=== PATIENT | female | born 1975 | race Caucasian/White ===

== ENCOUNTER → 2016-07-31 | Outpatient (CLI) | payer MEDICAID ==
--- NOTE | 2016-07-31 15:07 | US ---
July 31, [address] Franklin, Thank you for allowing me to see your patient, Mrs. Goodwin for aneuploidy screening and co nsult. As you know she is a 41 year old G 2, P 1001 . Her due date is 02/07/17 by LMP of 05/03/16. Based on this dating her current gestational age is 12 weeks 5 day(s) . This is complicat ed by advanced maternal age and a history of postdates SGA. She is pending her NIPT results. Trish reports that her son was born at 42 weeks only weighing 5 lb. He required a week of NICU care. ULTRASOUND LMP: 05/03/17 Gestational age by LMP: 12 weeks 5 days AL by LMP: 02/07/17 CRL: 66 mm Gestational Age by CRL: 12 weeks 5 days AL by CRL: 02/07/17 Consistent with established dating (LMP or ultrasound): Yes Nuchal Translucency: 1.7 mm Nasal Bone: Present Heart Rate: 165 bpm Placenta: Anterior Right Ovary: Is not seen on today's ultrasound. Left Ovary: Is visualized with a corpus luteum. The ovary measures 2.1 x 2.8 x 1.9 cm. The corpus lut eum measures 1.5 x 1.2 x 1.5 cm. No overt structural anomalies were identified for this early ultrasound. The choroids, upper extremit ies and lower extremities were visualized and appear normal for this gestational age. Please note the full anatomic evaluation has not occurred for this early gestational age. Impression: 1. Intrauterine at 12 w, 5 d, AL of 02/07/17. 2. Nuchal translucency measurement today is 1.7 mm, which is reassuring. 3. Advanced maternal age; pending NIPT results Recommendations: 1. Maternal serum AFP is recommended between 15-20 weeks to screen for the risk of open neural tube defects. 2. Recommend a detailed obstetrical ultrasound between 19 and 20 weeks to evaluate anatomy. 3. We reviewed the various aneuploidy screening options and definitive genetic diagnosis today inclu ding the types of information each can reveal. After our conversation, your couple declined invasive testing. 4. Recommend surveillance of growth at 28-30 weeks and 34-36 weeks given the history of SGA found at term. Thank you for allowing us the opportunity to evaluate your patient. Should you have any further ques tions or concerns please do not hesitate to contact me. Approximately 20 minutes were spent with the patient and 12 minutes were spent in face to face consu ltation. Ayleen Sam MD [employer] M[facility] Department of Obstetrics & Gynecology [facility]
--- NOTE | 2016-07-31 15:35 | US ---
Obstetrical Ultrasound 1st Trimester, Nuchal measurement, <14 weeks Clinical Indications: Advanced maternal age. Intrauterine . Findings: A single viable intrauterine fetus is identified. LMP: May 03, 2016 Gestational Age by LMP: 12 weeks 5 days AL by LMP: February 07, 2017 CRL: 65.92 mm Gestational Age by CRL: 13 weeks 0 days AL by CRL: February 05, 2017 FHR = 165 beats per minute. Nuchal translucency is 1.7 mm. Nasal bone is identified. No subchorionic hemorrhage. Anterior placenta. Cervix appears closed. Right ovary not visualized Left ovary 2.8 x 1.9 x 2.1 cm with a 1.5 x 1.2 x 1.5 cm corpus luteum cyst. Impression: 1. Single viable intrauterine gestation with size consistent with LMP dates. 2. FHR = 165 BPM. 3. Recommend followup anatomy scan between 19 and 20 weeks gestation. 4. Please see Dr. Ayleen Sam's consult and recommendations.
== END ==
LOC: FIMAGING 13:54
PROVIDERS: ATTEND Obstetrics & Gynecology
DX: O09.521 Supervision of elderly multigravida, first trimester (principal); Z3A.12 12 weeks gestation of pregnancy

== ENCOUNTER → 2016-09-25 | Outpatient (CLI) | payer MEDICAID | LOC: FIMAGING 12:05 | PROVIDERS: ATTEND Obstetrics & Gynecology | DX: O09.522 Supervision of elderly multigravida, second trimester (principal); Z3A.20 20 weeks gestation of pregnancy ==

== ENCOUNTER → 2016-11-17 | Outpatient (CLI) | payer MEDICAID | LOC: FIMAGING 09:31 | PROVIDERS: ATTEND Obstetrics & Gynecology | DX: O09.523 Supervision of elderly multigravida, third trimester (principal); Z3A.28 28 weeks gestation of pregnancy ==

== ENCOUNTER → 2016-12-15 | Outpatient (CLI) | payer MEDICAID | LOC: FIMAGING 09:37 | PROVIDERS: ATTEND Obstetrics & Gynecology | DX: Z36 Encounter for antenatal screening of mother (principal); O09.523 Supervision of elderly multigravida, third trimester; Z3A.32 32 weeks gestation of pregnancy ==

== ENCOUNTER → 2017-01-19 | Outpatient (CLI) | payer MEDICAID | LOC: FIMAGING 09:31 | PROVIDERS: ATTEND Obstetrics & Gynecology | DX: O09.523 Supervision of elderly multigravida, third trimester (principal); Z3A.37 37 weeks gestation of pregnancy ==

== ENCOUNTER 2017-02-03 17:00 | Inpatient (IN) | payer MEDICAID ==
[2017-02-04] MEDS ORDERED: TERBUTALINE SULFATE 1 MG/ML VIAL IV PRN (06:36)
[2017-02-04] MEDS ORDERED: OLIVE OIL 118 ML BTL MISC PRN (06:36)
[2017-02-04] MEDS ORDERED: LR 1,000 ML IV PRN (06:36)
[2017-02-04] MEDS ORDERED: EPSOM SALT 454 GM TP PRN (06:36)
[2017-02-04] MEDS ORDERED: OXYTOCIN/RINGERS LACTATE 1,000 ML IV PRN (06:36)
[2017-02-04 07:21] LABS: % IMMATURE GRANULYOCYTES 0.3 % (0.0-1.1); ABSOLUTE IMMATURE GRANULOCYTES 0.02 10^3/uL (0.00-0.10); ADD DIFF? NO; ADD MORPH? NO; ADD SCAN? NO; ATYPICAL LYMPHOCYTE FLAG 0 (0-99); FRAGMENT RBC FLAG 0 (0-99); HEMATOCRIT 49.8 % (38.0-47.0); HEMOGLOBIN 17.1 g/dL (12.6-16.3); LEFT SHIFT FLG 0 (0-99); LIPEMIA HEMOLYSIS FLAG 90 (0-99); MEAN CELL HEMOGLOBIN 30.3 pg (27.9-34.1); MEAN CELL HEMOGLOBIN CONCENTR. 34.3 g/dL (32.4-36.7); MEAN CELL VOLUME 88.3 fL (81.5-99.8); MEAN PLATELET VOLUME 10.1 fL (8.7-11.7); PLATELET CLUMPS FLAG 0 (0-99); PLATELET COUNT 137 10^3/uL (150-400); RED BLOOD CELL COUNT 5.64 10^6/uL (4.18-5.33); RED CELL DISTRIBUTION WIDTH 13.5 % (11.5-15.2)
[2017-02-04] MEDS ORDERED: LR 500 ML IV PRN (07:48)
[2017-02-04] MEDS ORDERED: OXYTOCIN/RINGERS LACTATE 500 ML IV SCH (08:00)
[2017-02-04] MEDS ORDERED: LIDOCAINE 1% 300 MG/30 ML SDV ONE (09:25)
[2017-02-04] MEDS ORDERED: OLIVE OIL 118 ML BTL ONE (09:25)
[2017-02-04] MEDS ORDERED: AMMONIA AROMATIC 1 EACH AMP IH ONE (09:26)
[2017-02-04] MEDS ORDERED: MISOPROSTOL 200 MCG TAB ONE (09:26)
[2017-02-04] MEDS ORDERED: BUPIVACAINE 0.25% 30 ML SDV ONE (14:11)
[2017-02-04] MEDS ORDERED: fentaNYL 100 MCG/2 ML INJ ONE (14:11)
[2017-02-04] MEDS ORDERED: PHENYLEPHRINE HCL 100 MCG/ML SYR ONE (14:11)
[2017-02-04] MEDS ORDERED: fentaNYL 2MCG/ML/BUP 0.1% RTU 100 ML BAG EP ONE (14:11)
--- NOTE | 2017-02-04 14:32 | GHP ---
[f rep st] HISTORY AND PHYSICAL DATE OF ADMISSION: 02/04/2017 SERVICE: Obstetrics. HISTORY: Upon admission, the patient is a 41-year-old G2, P1, at 39 weeks and 4 days with an estima yassine due date of 02/07/2017, who presents for induction of labor. The patient had a history of IUGR in her 1st . However, in this she has had reassuring ultrasounds. In November she h ad an ultrasound where the baby was the 50th percentile and the patient recently was seen at 37 week s and an ultrasound revealed the baby was at the 37th percentile of weight. The patient was interes yassine in induction to be delivered. Her cervix was 1-2 cm dilated, 50% effaced, and -2 station, and a Wolff catheter was placed in her cervix the night prior to admission. After the Wolff bulb, the pa tient had minimal amount of bleeding and had more bleeding on the morning of admission consistent wi th bloody show. The patient had some contractions through the night but was able to rest. The bag of water was intact with good movement. Upon admission this morning, the patient was started on Pitocin for induction and the Wolff bulb did not come out spontaneously. It was removed approxim ately 10:15, and the cervix at that time was 3-4 cm dilated. Contractions have not dramatically loyd nged with intensity and the patient agrees to rupture of membranes at this point to stimulate, Pitoc in up to 16 at this time. PAST HISTORY: The patient was followed for care with [facility] until 3 5 weeks at which time she transferred to [facility]. The patient was followed more by the maternal specialist due to the history of IUGR with good reassuring ultrasounds. The patient also is at risk because of depression after her first; however, this was also due to sit uational issues at that time. The patient has not felt that she needs antidepressants at this time. The patient has been living down in [place] and commuting up to the [place] area. PAST LABS: Maternal blood type O positive with negative antibody screen. RPR nonreactive . Rubella immune. Hepatitis B surface antigen negative. HIV negative. Genetic carrier screening was declined. Parvo virus was found to be nonimmune. Urinalysis and culture negative. Verified te sting was negative with MSAFP negative, 1-hour Glucola was normal. GBS culture was negative. Most recent hematocrit was 37%. PAST MEDICAL HISTORY: Abnormal Pap smear with a colposcopy in 1998 with no recurrence of issues and no treatment done at that time. PAST SURGICAL HISTORY: Tonsillectomy as a child and bunion surgery. PAST OBSTETRIC HISTORY: The patient has a son delivered in February 2014 at 5 pounds, 8 ounces at 42 weeks gestation after a 24-hour labor. The patient had an epidural and pushed less than an hour. Due to the IUGR, the baby was watched closely and due to blood low blood sugars was in the NICU fo r 5 days. ALLERGIES: The patient has no known drug allergies. CURRENT MEDICATIONS: Only vitamins. FAMILY HISTORY: The patient's sister was diagnosed with breast cancer at age 34. The patient has b een tested and is negative for the bracket gene. SOCIAL HISTORY: The patient is , lives with her and son. The patient is a nonsmoker . No alcohol or drug use. PHYSICAL EXAMINATION: GENERAL: Upon admission, the patient is a well-developed, well-nourished whi te female in no physical discomfort upon admission. The patient is now becoming more aware of contr action intensity after rupture of membranes. VITAL SIGNS: Have been stable and the patient is afeb rile. See nursing documentation for full details. heart tone monitoring has revealed a categ ory 1 tracing with baseline in the 130s with moderate variability and accelerations. No deceleratio ns noted. Contractions currently on 16 of Pitocin are every 2-3 minutes. Moderate intensity buildi ng. PELVIC: Exam performed with fundal pressure, artificial rupture of membranes was performed wit h blood-tinged fluid but generally clear, performed at 1313. The cervical exam now is 5 cm dilated, 80% effaced, at -2 station, vertex. EXTREMITIES: Nontender. ASSESSMENT: Intrauterine at 39 weeks 4 days, elective induction, on Pitocin. Artificial rupture of membranes performed and clear fluid. GBS negative. PLAN: We will continue Pitocin and epidural when desired. Expect vaginal delivery. /[id number]/MODL
--- NOTE | 2017-02-04 15:05 | PREANESOB ---
Obstetric Pre-Anesthesia Info - General Info Proposed Procedure: Labor and delivery with pitocin. : 2 Para: 1 WBD: 39 - Info Status: Full Term Monitors: External FHR Baseline (bpm): 135 FHR Pattern: Reassuring - Labor Status Cervical Dilation per last OB SVE: 5 Rupture of Membranes Time: 13:13 Pitocin: In Use Indications for Labor Analgesia: Induction of Labor, Pain Control Labor Epidural: Proposed Anesthesia ROS: Prior labor epidural. Allergies/Adverse Reactions: Allergy/AdvReac Type Severity Reaction Status Date / Time No Known Allergies Allergy Verified 02/04/17 07:14 Home Medications: Medication Instructions Recorded 1 tab PO DAILY 02/27/14 IRON,CARBONYL [IRON] 45 mg PO 02/04/17 Visit Medications: Generic Name Dose Route Start Last Admin Trade Name Freq PRN Reason Stop Dose Admin Lactated Ringer's 1,000 mls @ 0 mls/hr 02/04/17 06:36 02/04/17 08:15 Lr IV 08/03/17 06:35 1,000 mls PRN PRN Administration SEE PROTOCOL CONDITIONS Protocol Per Protocol Oxytocin/Lactated Ringer's 1,000 mls @ 150 mls/hr 02/04/17 06:36 Pitocin 20 Units/Lr (Premix) IV PRN PRN Post- bleeding Lactated Ringer's 500 mls @ 500 mls/hr 02/04/17 07:48 Lr IV PRN PRN Maternal Hypotension Oxytocin/Lactated Ringer's 500 mls @ 0 mls/hr 02/04/17 08:00 02/04/17 08:15 Pitocin 30 Units/Lr (Premix) IV 08/03/17 07:59 500 mls CONT THANH Administration Protocol Per Protocol Ibuprofen 600 mg 02/04/17 06:36 Motrin PO 08/03/17 06:35 Q6HRS PRN post , inflammation Magnesium Sulfate 454 gm 02/04/17 06:36 Epsom Salt TP 08/03/17 06:35 Q1H PRN perineal discomfort [place] Oil 118 ml 02/04/17 06:36 Sweet Oil MISC 08/03/17 06:35 ONCE PRN preneal massage Terbutaline Sulfate 0.25 mg 02/04/17 06:36 Brethine IV 08/03/17 06:35 ONCE PRN Tachysystole Discontinued Medications Generic Name Dose Route Start Last Admin Trade Name Samanta PRN Reason Stop Dose Admin Ammonia (Aromatic Spirit) Confirm 02/04/17 09:26 Ammonia Aromatic Administered 02/04/17 09:27 Dose 1 each IH .STK-MED ONE Bupivacaine HCl Confirm 02/04/17 14:11 Sensorcaine 0.25% Sdv Administered 02/04/17 14:12 Dose 30 ml .ROUTE .STK-MED ONE Ephedrine Sulfate Confirm 02/04/17 09:26 Ephedrine Sulfate Administered 02/04/17 09:27 Dose 50 mg .ROUTE .STK-MED ONE Fentanyl Confirm 02/04/17 14:11 Sublimaze Administered 02/04/17 14:12 Dose 100 mcg .ROUTE .STK-MED ONE Fentanyl/Bupivacaine HCl Confirm 02/04/17 14:11 Fentanyl/Bupivacaine/Ns 2 Mcg/Ml 0.1% (Premix Administered 02/04/17 14:12 Dose 100 ml EP .STK-MED ONE Lidocaine HCl Confirm 02/04/17 09:25 Lidocaine Hcl 1% Administered 02/04/17 09:26 Dose 300 mg .ROUTE .STK-MED ONE Misoprostol Confirm 02/04/17 09:26 Cytotec Administered 02/04/17 09:27 Dose 1,000 mcg .ROUTE .STK-MED ONE [place] Oil Confirm 02/04/17 09:25 Sweet Oil Administered 02/04/17 09:26 Dose 118 ml .ROUTE .STK-MED ONE Phenylephrine HCl Confirm 02/04/17 14:11 Neosynephrine Administered 02/04/17 14:12 Dose 1,000 mcg .ROUTE .STK-MED ONE - Anesthesia History Response to Local Anesthetics: Normal Anesthesia & Operative History: No Prior Problems Family Anesthesia History: Negative - Social History Substance Use/Abuse: Denies - Focused Exam Blood Pressure: 116/70 Heart Rate: 77 Respiratory Rate: 20 Height/Weight (Nursing): Height 152.4 cm Weight 77.111 kg Physical Exam: Within normal limits. ASA Status: II Labs: 02/04/17 06:50 Patient ABO/Rh O POSITIVE 02/04/17 06:50 - Plan Anesthetic Plan: CSE Consent Signed and on Chart: Yes Patient/Guardian Understands and Agrees to Plan: Yes Urgent/Emergent Case: Umesh rudd completed preop but documented later for safe timely pt care
[2017-02-04] MEDS ORDERED: ONDANSETRON 4 MG/2 ML VIAL IVP PRN (15:06)
[2017-02-04] MEDS ORDERED: PHENYLEPHRINE HCL 100 MCG/ML SYR IVP PRN (15:06)
--- NOTE | 2017-02-04 15:06 | POSTANESTH ---
Post Anesthetic Evaluation Cardiovascular Status: Normal, Stable Respiratory Status: Normal, Stable, Similar to Pre-op Cond. Level of Consciousness/Mental Status: Can Participate in Eval, Alert and Oriented Pain Control: Adequate, Prn Tx Ordered Nausea/Vomiting Control: Adequate, Prn Tx Ordered Complications Possibly Related to Anesthesia: None Noted
[2017-02-04] MEDS ORDERED: LR 500 ML IV SCH (15:30)
[2017-02-04] MEDS ORDERED: fentaNYL 2MCG/ML/BUP 0.1% RTU 100 ML EP SCH (15:30)
--- NOTE | 2017-02-04 20:01 | OBPROG ---
OBG Labor Progress Note Assessment/Plan: Assessment: IUP at 39w4d, elective induction h/o IUGR with first AMA Plan: cont pitocin, good cervical change 02/04/17 19:58 Subjective: Pt doing well with ZOË - some ctxns discomfort. Not feeling pressure. Objective: 02/04/17 06:50 Patient ABO/Rh O POSITIVE 02/04/17 06:50 Temp Pulse Resp BP Pulse Ox 77 20 116/70 02/04/17 15:05 02/04/17 15:05 02/04/17 15:05 - SVE Dilation (cm): 9 Effacement (%): 90 Station: +1 Vogel Current Contraction Pattern: Regular (q2-3 on 24 mu/min pit) FHR (bpm): 130 FHR Pattern Variability: Moderate FHR Category: 2 (with mild early decels, occas variable decels) Membranes: AROM Amniotic Fluid Color: Clear - Procedures Non-surgical Procedures: Amniotomy (done at 13:13) Oxytocin Orders Assessment - Pre-Induction/Augmentation Assessment Gestational Age: 39 week(s) and 4 day(s) ICD10 Worksheet Patient Problems: Problems Problem Status Onset Elective induction of labor planned Acute Gestational HTN Acute - ICD10 Problem Qualifiers (1) Elective induction of labor planned
[2017-02-04] MEDS ORDERED: HYDROCODONE/APAP 5/325 TAB PO PRN (22:56)
[2017-02-04] MEDS ORDERED: ACETAMINOPHEN 325 MG TAB PO PRN (22:56)
--- NOTE | 2017-02-04 23:01 | OBDEL ---
Info Type: Vaginal GBS+: No Indications for Delivery: Elective Vaginal Delivery - Labor and Delivery Onset of Contractions Date: 02/04/17 Onset of Contractions Time: 10:15 Onset of Contractions Type: Induced Rupture of Membranes Date: 02/04/17 Rupture of Membranes Time: 13:13 Rupture of Membranes Type: Artificial Amniotic Fluid Color: Clear Dilation Complete Date: 02/04/17 Dilation Complete Time: 21:48 Placenta Delivery Date: 02/04/17 Placenta Delivery Time: 22:24 Total Hours of Labor: 12 Non-surgical Procedures: Amniotomy (done at 13:13) Laceration: 2nd Degree (small) Repair: 3-0, Vicryl Vaginal Sponge Count Correct: Yes Vaginal Needle Count Correct: Yes Vaginal Sweep Performed: No EBL: 350 Delivery Events: None - Medications Labor Augmentation/Induction Methods Used: Pitocin, Wolff Bulb Labor Augmentation/Induction Indication: Elective Data Vogel Delivery Date: 02/04/17 Delivery Time: 22:16 AL: 02/07/17 Gestational Age: 39 week(s) and 4 day(s) Sex of Infant: Female Score (1 Min): 8 Score (5 Min): 9 ICD10 Worksheet Patient Problems: Problems Problem Status Onset (spontaneous vaginal delivery) Acute - ICD10 Problem Qualifiers (1) Elective induction of labor planned
[2017-02-04] MEDS: IBUPROFEN 600 MG TAB PO PRN (23:03)
--- NOTE | 2017-02-04 23:06 | OBGCSDC ---
General Delivery Information - General Info : 2 Para: 2 Delivery Physician/CNM: Patti Bellamy Admission Date: 02/04/17 Labs: Patient ABO/Rh O POSITIVE 02/04/17 06:50 Hct 49.8 % (38.0-47.0) H 02/04/17 06:50 Vaginal - Diagnosis Labor: Induced Presentation at Delivery: Vertex Rupture of Membranes Type: Artificial Amniotic Fluid Color: Clear Laceration: 2nd Degree (small) Repair: 3-0, Vicryl Delivery Events: None - Operations/Procedures Non-surgical Procedures: Amniotomy (done at 13:13) L&D Analgesia/Anesthesia Type: Epidural - Hospital Course Antepartum: Transfer at 35 wks to [facility] from [facility]. Followed by [facility] due to IUGR with first, but nl u/s in November at 50% EFW and at 37wks she was 37% EFW. Intrapartum: indxn with graves - removed in am and was 3-4cm. pit started and hrs later was 5cm and AROM done. increased pain and got ZOË. progressed well to complete and pushed approx 10 min. Cord blood and cord tissue obtained for CBR storage for pt. - Delivery Type: Vaginal Non-surgical Procedures: Amniotomy (done at 13:13) EBL: 350 Data Vogel Delivery Date: 02/04/17 Delivery Time: 22:16 AL: 02/07/17 Gestational Age: 39 week(s) and 4 day(s) Sex of Infant: Female Score (1 Min): 8 Score (5 Min): 9
--- NOTE | 2017-02-05 06:49 | OBPP ---
Progress Note Assessment/Plan: Assessment: well. Nipples intact denies pain scant rubra lochia ff@u voiding without difficulty Plan:pp day 1 02/05/17 06:47 Subjective: doing well denies difficulties. well. Objective: 02/04/17 06:50 Patient ABO/Rh O POSITIVE 02/04/17 06:50 Temp Pulse Resp BP Pulse Ox 36.8 C 76 16 104/56 L 96 02/05/17 03:26 02/05/17 03:26 02/05/17 03:26 02/05/17 03:26 02/05/17 03:26 Uterine Position/Fundal Height: At Umbilicus Uterine Tone: Firm Physical Exam - Physical Exam General Appearance: WD/WN, alert, no apparent distress Abdomen: other (ff@u) Extremities: normal range of motion, Tu's sign (negative bilaterally) DTR- Lower Extremities: Knee (R): 1+, Knee (L): 1+ (no clonus) Skin: normal color, warm/dry Neuro/Psych: no motor/sensory deficits, alert, normal mood/affect, oriented x 3
[2017-02-05] MEDS: IBUPROFEN 600 MG TAB PO PRN ×3 (07:07→19:42)
[2017-02-05] MEDS: DOCUSATE SODIUM 100 MG CAP PO SCH ×2 (14:07→19:42)
[2017-02-05 19:43] VITALS: RESP 16; O2SAT 99
[2017-02-06] MEDS: IBUPROFEN 600 MG TAB PO PRN ×2 (04:55→11:32)
--- NOTE | 2017-02-06 09:08 | OBPP ---
Progress Note Assessment/Plan: Assessment: 41 y/o PPD #2 s/p doing well. Plan: D/c home today with Rx Ibuprofen. Follow-up @ [facility] 4 and 6 weeks. 02/06/17 09:08 Subjective: Pt is doing well this am. She has min pain, cramping controlled with Ibuprofen. She has min lochia, is ambulating, voiding without difficulty. Breast feeding is going well and baby is good. They are ready to d/c home. Objective: 02/04/17 06:50 Patient ABO/Rh O POSITIVE 02/04/17 06:50 Temp Pulse Resp BP Pulse Ox 36.3 C 87 16 121/72 H 99 02/05/17 19:40 02/05/17 19:40 02/05/17 19:40 02/05/17 19:40 02/05/17 19:40 Uterine Position/Fundal Height: Umbilicus -3 Uterine Tone: Firm Physical Exam - Physical Exam General Appearance: WD/WN, alert, no apparent distress Neck: non-tender, full range of motion, supple Respiratory: chest non-tender, lungs clear, normal breath sounds Cardiac/Chest: regular rate, rhythm Abdomen: normal bowel sounds Extremities: swelling (1+), Tu's sign (neg)
--- NOTE | 2017-02-06 09:12 | OBGCSDC ---
General Delivery Information - General Info : 2 Para: 2 Abortions: 0 Delivery Physician/CNM: Patti Bellamy Admission Date: 02/04/17 Labs: Patient ABO/Rh O POSITIVE 02/04/17 06:50 Hct 49.8 % (38.0-47.0) H 02/04/17 06:50 Vaginal - Diagnosis Labor: Induced Presentation at Delivery: Vertex Rupture of Membranes Type: Artificial Amniotic Fluid Color: Clear Laceration: 2nd Degree (small) Repair: 3-0, Vicryl Delivery Events: None - Operations/Procedures Non-surgical Procedures: Amniotomy (done at 13:13) L&D Analgesia/Anesthesia Type: Epidural - Hospital Course Antepartum: h/o IUGR, AMA Intrapartum: graves, admit 3-3/80%, AROM, epidural, : Working on breast feeding, min lochia, pain controlled with Ibuprofen - Delivery Non-surgical Procedures: Amniotomy (done at 13:13) L&D Analgesia/Anesthesia Type: Epidural [place] Data Vogel Delivery Date: 02/04/17 Delivery Time: 22:16 AL: 02/07/17 Gestational Age: 39 week(s) and 6 day(s) Sex of Infant: Female Weight (gm): 2852 g Score (1 Min): 8 Score (5 Min): 9 Discharge Information - Discharge Information Discharge Medications: Ibuprofen Condition: Good Instruction/Follow Up: Four Weeks, Six Weeks Discharge Physician/CNM: Baylee Baker
[2017-02-06 10:12] VITALS: BP 119/87; PULSE 81; TEMP 97.1
[2017-02-06] MEDS: DOCUSATE SODIUM 100 MG CAP PO SCH (11:32)
== END 2017-02-06 13:20 | disposition home or self-care (01) | DRG 775 ==
LOC: FLD 02-04 06:32 → FOB 02-05 00:25
PROVIDERS: ADMIT Obstetrics & Gynecology; ATTEND Obstetrics & Gynecology
PROC: 3E033VJ Introduction of Other Hormone into Peripheral Vein, Percutaneous Approach (ICD-10-PCS; principal; 2017-02-04)
PROC: 10E0XZZ Delivery of Products of Conception, External Approach (ICD-10-PCS; principal; 2017-02-04)
PROC: 0KQM0ZZ Repair Perineum Muscle, Open Approach (ICD-10-PCS; principal; 2017-02-04)
DX: O70.1 Second degree perineal laceration during delivery (principal); Z3A.39 39 weeks gestation of pregnancy; Z37.0 Single live birth
CPT/HCPCS: J2370; J2590; J3010

== ENCOUNTER → 2018-09-03 | Outpatient (CLI) | payer OTHER | LOC: FIMAGING 10:23 | PROVIDERS: ATTEND Obstetrics & Gynecology | DX: Z12.31 Encounter for screening mammogram for malignant neoplasm of breast (principal) ==

== ENCOUNTER → 2018-09-03 | Outpatient (CLI) | payer OTHER | LOC: FIMAGING 09:11 | PROVIDERS: ATTEND Obstetrics & Gynecology | DX: N83.02 Follicular cyst of left ovary (principal); N83.01 Follicular cyst of right ovary; Z97.5 Presence of (intrauterine) contraceptive device ==